=== PATIENT | female | born 1980 | race Two or more races ===

== ENCOUNTER 2020-06-26 14:50 | Emergency (ER) | payer OTHER ==
[~2020-06-26] VITALS: Ht 157.5 cm; Wt 68.9 kg
[~2020-06-26 14:50] MED LIST: IBUP-1955 PO
--- NOTE | 2020-06-26 15:07 | NUR ---
Patient discharged to home in stable condition. Written and verbal after care instructions given. Patient verbalizes understanding of instructions. Stressed follow up or return to ER for worsening s/s.
== END 2020-06-26 15:16 | disposition home or self-care (01) ==
LOC: ER 14:54
DX: Z76.0 Encounter for issue of repeat prescription (principal); G89.4 Chronic pain syndrome; M25.512 Pain in left shoulder; J45.909 Unspecified asthma, uncomplicated; Z83.3 Family history of diabetes mellitus; Z82.3 Family history of stroke; Z82.49 Family history of ischemic heart disease and other diseases of the circulatory system
CPT/HCPCS: A4663

== ENCOUNTER 2020-06-30 16:56 | Emergency (ER) | payer OTHER ==
[~2020-06-30] VITALS: Ht 157.5 cm; Wt 68.0 kg
--- NOTE | 2020-06-30 17:30 | NUR ---
Patient discharged to home in stable condition. Written and verbal after care instructions given. Patient verbalizes understanding of instructions. Stressed follow up or return to ER for worsening s/s. Pt refused to sign written ACI, witnessed by BHAVANA Ram.
== END 2020-06-30 17:41 | disposition home or self-care (01) ==
LOC: ER 16:58
DX: G89.4 Chronic pain syndrome (principal); J45.909 Unspecified asthma, uncomplicated; Z83.3 Family history of diabetes mellitus; Z82.3 Family history of stroke; Z82.49 Family history of ischemic heart disease and other diseases of the circulatory system
CPT/HCPCS: A4663

== ENCOUNTER 2020-07-01 15:34 | Emergency (ER) | payer OTHER ==
[~2020-07-01] VITALS: Ht 157.5 cm; Wt 68.0 kg
--- NOTE | 2020-07-01 16:31 | NUR ---
Patient discharged to home in stable condition with brisk steady gait. Written and verbal after care instructions given to patient. Patient verbalizes understanding & compliance of instructions but refused to sign the discharge papers unless Dr Cronin gives more pain medicines prescription. Dr Cronin said that this patient filled up about 90 pills of Tramadol with [facility] data. Today, Dr Cronin is only giving 10 pills for Tramadol as prescription. Stressed follow up with primary doctor and a pain doctor for her chronic pain issues or return to ER for worsening s/s.
--- NOTE | 2020-07-01 16:32 | NUR ---
Patient discharged to home in stable condition. Written and verbal after care instructions given. Patient verbalizes understanding of instructions. Stressed follow up or return to ER for worsening s/s. Pt refused to sign ACI sheet.
== END 2020-07-01 16:34 | disposition home or self-care (01) ==
LOC: ER 15:36
DX: G89.4 Chronic pain syndrome (principal); M25.519 Pain in unspecified shoulder; J45.909 Unspecified asthma, uncomplicated; F32.9 Major depressive disorder, single episode, unspecified; Z83.3 Family history of diabetes mellitus; Z82.3 Family history of stroke; Z82.49 Family history of ischemic heart disease and other diseases of the circulatory system
CPT/HCPCS: A4663

== ENCOUNTER 2020-07-08 20:38 | Emergency (ER) | payer OTHER ==
[~2020-07-08] VITALS: Ht 157.5 cm; Wt 67.1 kg
--- NOTE | 2020-07-08 21:02 | NUR ---
MSE COMPLETE. Patient discharged to home in stable condition. Written and verbal after care instructions/rx 1 given. Patient verbalizes understanding of instructions. Stressed follow up or return to ER for worsening s/s.
[2020-07-08 21:03] VITALS: BP 117/78
== END 2020-07-08 21:03 | disposition home or self-care (01) ==
LOC: ER 20:38
DX: G89.4 Chronic pain syndrome (principal); R51.9 Headache, unspecified; J45.909 Unspecified asthma, uncomplicated; F11.11 Opioid abuse, in remission; Z83.3 Family history of diabetes mellitus; Z82.3 Family history of stroke; Z82.49 Family history of ischemic heart disease and other diseases of the circulatory system
CPT/HCPCS: A4663

== ENCOUNTER 2020-09-21 23:19 | Emergency (ER) | payer OTHER ==
[~2020-09-21] VITALS: Ht 162.6 cm; Wt 68.9 kg
[2020-09-21] MEDS ORDERED: TRAMADOL HCL 50 MG TABLET PO ONE (23:45)
[2020-09-22] LABS: EOSINOPHILS # (AUTO) 0.1 K/uL (0.0-0.7); EOSINOPHILS % (AUTO) 2.9 % (0.0-7.0); HEMATOCRIT 35.4 % (31.2-41.9); HEMOGLOBIN 11.7 g/dL (10.9-14.3); LYMPHOCYTES % (AUTO) 41.7 % (20.5-51.5); MEAN CORPUSCULAR HEMOGLOBIN 31.6 uug (24.7-32.8); MEAN CORPUSCULAR HGB CONC 33 g/dL (32.3-35.6); MEAN CORPUSCULAR VOLUME 95.6 fL (75.5-95.3); MONOCYTES # (AUTO) 0.5 K/uL (2.0-10.0); MONOCYTES % (AUTO) 10.1 % (0.0-11.0); NEUTROPHILS # (AUTO) 2.1 K/uL (1.8-8.9); NEUTROPHILS % (AUTO) 44.3 % (38.5-71.5); PLATELET COUNT (AUTO) 274 K/uL (179-408); RED BLOOD CELL COUNT(AUTO) 3.71 MIL/uL (3.63-4.92); WHITE BLOOD COUNT (AUTO) 4.7 K/uL (3.8-11.8)
--- NOTE | 2020-09-22 | NUR ---
Patient is a 40 year old female who presents to the ED this time for abdominal pain. Patient has an extensive history here at [facility] - typically presenting with "pain". Patients MONA report shows 38 ER visits in last 12 months. Vitals all stable. No chest pain, no SOB, no diaphoresis, no chills.
[2020-09-22] MEDS ORDERED: TRAMADOL HCL 50 MG TABLET ONE ×2 (00:02→01:35)
[2020-09-22] MEDS ORDERED: IV NORMAL SALINE 1000 ML BAG IV ONE (00:15)
[2020-09-22 00:17] LABS: ALANINE AMINOTRANSFERASE 32 U/L (14-59); ALKALINE PHOSPHATASE 98 U/L (50-136); ASPARTATE AMINOTRANSFERASE 17 U/L (15-37); BILIRUBIN,DIRECT < 0.1 mg/dL (0.0-0.2); BILIRUBIN,TOTAL 0.1 mg/dL (0.2-1.0); CARBON DIOXIDE 27 mmol/L (21-32); CHLORIDE 105 mmol/L (98-107); CREATININE 0.9 mg/dL (0.6-1.3); GLUCOSE 92 mg/dL (74-106); LIPASE 125 U/L (73-393); POTASSIUM 3.7 mmol/L (3.5-5.1); TOTAL PROTEIN, SERUM 7.5 g/dL (6.4-8.2); UREA NITROGEN, BLOOD 15 mg/dL (7-18)
[2020-09-22 01:10] LABS: *BILIRUBIN,URIN NEGATIVE (NEGATIVE); *BLOOD, URINE 3+ (NEGATIVE); *CLARITY,URINE CLOUDY (CLEAR); *COLOR,URINE PINK (YELLOW); *KETONES,URINE NEGATIVE (NEGATIVE); *UROBILINOGEN,URINE 0.2 E.U./dl (NORMAL); LEUKOCYTE ESTERASE ,URINE TRACE (NEGATIVE); NITRITE, URINE NEGATIVE (NEGATIVE); UGLUCOSE NEGATIVE (NEGATIVE)
[2020-09-22 01:18] LABS: RBC,URINE 20-50 /HPF (0-3)
[2020-09-22] MEDS ORDERED: TRAM50TA2 PO (01:18)
[2020-09-22 01:19] LABS: BACTERIA,URINE FEW /HPF (NONE SEEN); SQUAMOUS EPITHELIAL CELL,UR MANY /HPF (NONE SEEN)
[2020-09-22 01:23] VITALS: BP 120/69
[2020-09-22] MEDS ORDERED: TRAMADOL HCL 50 MG TABLET PO ONE (01:30)
[2020-09-22] MEDS ORDERED: LORAZEPAM 1 MG TABLET ONE (01:41)
[2020-09-22] MEDS ORDERED: LORAZEPAM 0.5 MG TABLET PO ONE (01:45)
--- NOTE | 2020-09-22 01:48 | NUR ---
Patient discharged to home in stable condition. Written and verbal after care instructions given. Patient verbalizes understanding of instructions. Stressed follow up or return to ER for worsening s/s. Educated to not drive. Rx given. 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 Patient also repeatedly asked for multiple drug prescriptions prior to dismissal.
== END 2020-09-22 01:50 | disposition home or self-care (01) ==
LOC: ER 23:25
DX: R10.31 Right lower quadrant pain (principal); F19.10 Other psychoactive substance abuse, uncomplicated; R45.0 Nervousness; G89.4 Chronic pain syndrome; J45.909 Unspecified asthma, uncomplicated; Z76.5 Malingerer [conscious simulation]; Z90.49 Acquired absence of other specified parts of digestive tract
CPT/HCPCS: 36415; 83690; 85025; 85730; J7030

== ENCOUNTER 2021-02-28 02:17 | Emergency (ER) | payer OTHER ==
[~2021-02-28] VITALS: Ht 162.6 cm; Wt 68.9 kg
[~2021-02-28 02:17] MED LIST changes: -IBUP-1955 PO; +TRAM50TA2 PO
--- NOTE | 2021-02-28 03:00 | NUR ---
Dr. Skinner at bedside for MSE.
[2021-02-28 03:35] LABS: HEMATOCRIT 33.9 % (31.2-41.9); MEAN CORPUSCULAR HEMOGLOBIN 31.1 uug (24.7-32.8); MEAN CORPUSCULAR VOLUME 94.9 fL (75.5-95.3); PLATELET COUNT (AUTO) 218 K/uL (179-408)
[2021-02-28 03:37] LABS: CARBON DIOXIDE 30 mmol/L (21-32); CHLORIDE 107 mmol/L (98-107); GLUCOSE 95 mg/dL (74-106); POTASSIUM 3.1 mmol/L (3.5-5.1); UREA NITROGEN, BLOOD 15 mg/dL (7-18)
[2021-02-28 03:44] LABS: ETHANOL < 3 MG/DL (0-0)
--- NOTE | 2021-02-28 03:55 | NUR ---
Pt out of ER for CT.
[2021-02-28] MEDS ORDERED: MAGNESIUM SULFATE 2 GM in IV DEXTROSE 5% 100 ML IV ONE (04:00)
[2021-02-28] MEDS ORDERED: POTASSIUM BICARBONATE/CIT AC 25 MEQ TABLET.EFF PO ONE (04:00)
--- NOTE | 2021-02-28 04:07 | NUR ---
Pt back to ER from CT.
[2021-02-28] MEDS ORDERED: POTASSIUM BICARBONATE/CIT AC 25 MEQ TABLET.EFF ONE (04:21)
[2021-02-28] MEDS ORDERED: MAGNESIUM SULFATE 1 GM/2 ML VIAL ONE (04:23)
--- NOTE | 2021-02-28 05:45 | NUR ---
Patient discharged to home in stable condition. Written and verbal after care instructions given. Patient verbalizes understanding of instructions. Stressed follow up or return to ER for worsening s/s. Pt refused to sign discharge paperwork. Pt out of ER with steady gait, no acute signs of distress, VSS, all belongings taken, IV site discontinued, provided with copies of lab and CT results.
[2021-02-28 05:47] VITALS: BP 125/83
== END 2021-02-28 05:47 | disposition home or self-care (01) ==
LOC: ER 02:18
DX: E83.42 Hypomagnesemia (principal); E87.6 Hypokalemia; M21.332 Wrist drop, left wrist; I44.7 Left bundle-branch block, unspecified; G89.4 Chronic pain syndrome; F41.8 Other specified anxiety disorders; R56.9 Unspecified convulsions; F19.10 Other psychoactive substance abuse, uncomplicated
CPT/HCPCS: 36415; 70450; 70486; 80048; 80320; 83605; 83735; 85025; 93005; 96365; 99285; J3475; J7060; A4663; G0480